=== PATIENT | female | born 1950 | race Caucasian/White ===

== ENCOUNTER 2020-04-17 11:13 | Outpatient (CLI) | payer MEDICARE ==
[~2020-04-17 11:13] MED LIST: ACID1TAB3 PO; CEFD300C37 PO; FURO-93 PO; POTA20TA91 PO; PRAM0.5T5 PO; TIOT18CA INH; ZOLP-413 PO
== END 2020-04-17 23:59 | disposition home or self-care (01) ==
LOC: RAD 11:13
PROVIDERS: ATTEND Family Medicine
DX: R60.0 Localized edema (principal)

== ENCOUNTER → 2020-04-22 | Outpatient (CLI) | payer MEDICARE | END | disposition home or self-care (01) | LOC: STAR 12:24 | PROVIDERS: ATTEND Family Medicine | DX: Z01.818 Encounter for other preprocedural examination (principal); R60.0 Localized edema | CPT/HCPCS: 93005 ==